=== PATIENT | male | born 1960 | race Two or more races ===

== ENCOUNTER 2023-05-30 05:23 | Inpatient (IN) | payer OTHER ==
[~2023-05-30] VITALS: Ht 172.7 cm; Wt 58.5 kg
[2023-05-30 08:27] LABS: HEMATOCRIT 44.2 % (39.0-48.0); HEMOGLOBIN 15.1 g/dL (13-16.00); MEAN CELL VOLUME 87.2 fL (80.0-100.00); MEAN CORPUSCULAR HEMOGLOBIN 29.8 pg (27.00-32.0); MEAN CORPUSCULAR HGB CONC 34.2 g/dl (32.0-36.0); PLATELET COUNT 258 K/uL (150-450); RED BLOOD COUNT 5.06 M/uL (4.00-6.00); RED CELL DISTRIBUTION WIDTH 14.2 % (11.5-14.5)
[2023-05-30 09:01] LABS: BILIRUBIN TOTAL 0.56 mg/dL (0.3-1.2); CALCIUM 9.4 mg/dL (8.5-10.1); CREATININE SERUM 0.9 mg/dL (0.70-1.30); GFR 86.07; POTASSIUM 3.71 mEq/L (3.5-5.1)
[2023-05-30 09:03] LABS: PH,URINE 5.5 (5.0-8.0); URINE APPEARANCE Clear; URINE BILIRRUBIN Negative (NEGATIVE); URINE BLOOD Negative; URINE COLOR Yellow; URINE GLUCOSE Negative (NEGATIVE); URINE LEUKOCYTE Negative; URINE NITRATE Negative; URINE PROTEIN Trace (NEGATIVE); URINE UROBILINOGEN 0.2 E.U./dl
[2023-05-30 09:04] LABS: URINE BACTERIA 6.2 uL (0.0-1933)
[2023-05-30 09:08] LABS: URINE EPITHELIAL CELLS 1.3 uL (0.0-38.8); URINE WBC 1.6 uL (0.0-23.2)
[2023-05-30 09:11] LABS: INR 1.04; PARTIAL THROMBOPLASTIN TIME 30.3 SECONDS (22.0-34.0); PROTHROMBIN TIME 10.9 SECONDS (9.0-11.5)
[2023-05-30 16:51] LABS: HEMATOCRIT 43.5 % (39.0-48.0); HEMOGLOBIN 14.8 g/dL (13-16.00); MEAN CELL VOLUME 87.2 fL (80.0-100.00); MEAN CORPUSCULAR HEMOGLOBIN 29.7 pg (27.00-32.0); MEAN CORPUSCULAR HGB CONC 34.1 g/dl (32.0-36.0); PLATELET COUNT 256 K/uL (150-450); RED BLOOD COUNT 4.99 M/uL (4.00-6.00); RED CELL DISTRIBUTION WIDTH 14.1 % (11.5-14.5)
[2023-05-30 17:10] LABS: CALCIUM 9.3 mg/dL (8.5-10.1); CREATININE SERUM 0.97 mg/dL (0.70-1.30); GFR 78.95; MAGNESIUM 1.8 mg/dL (1.8-2.4); PHOSPHOROUS 2.6 mg/dL (2.5-4.9); POTASSIUM 4.41 mEq/L (3.5-5.1)
[2023-05-31 06:17] LABS: HEMATOCRIT 41.2 % (39.0-48.0); HEMOGLOBIN 13.8 g/dL (13-16.00); MEAN CELL VOLUME 87.2 fL (80.0-100.00); MEAN CORPUSCULAR HEMOGLOBIN 29.2 pg (27.00-32.0); MEAN CORPUSCULAR HGB CONC 33.5 g/dl (32.0-36.0); PLATELET COUNT 238 K/uL (150-450); RED BLOOD COUNT 4.72 M/uL (4.00-6.00)
[2023-05-31 07:08] LABS: ALBUMIN 3.3 gm/dL (3.4-5.0); CALCIUM 8.6 mg/dL (8.5-10.1); CREATININE SERUM 1.01 mg/dL (0.70-1.30); GFR 75.35; MAGNESIUM 1.9 mg/dL (1.8-2.4); POTASSIUM 4.17 mEq/L (3.5-5.1)
[2023-06-01 06:35] LABS: HEMATOCRIT 43.4 % (39.0-48.0); HEMOGLOBIN 14.4 g/dL (13-16.00); MEAN CELL VOLUME 87.6 fL (80.0-100.00); MEAN CORPUSCULAR HGB CONC 33.2 g/dl (32.0-36.0); PLATELET COUNT 232 K/uL (150-450); RED BLOOD COUNT 4.96 M/uL (4.00-6.00); RED CELL DISTRIBUTION WIDTH 14.2 % (11.5-14.5)
[2023-06-01 07:06] LABS: CALCIUM 9.1 mg/dL (8.5-10.1); CREATININE SERUM 1.01 mg/dL (0.70-1.30); GFR 75.35; PHOSPHOROUS 2.1 mg/dL (2.5-4.9); POTASSIUM 4.86 mEq/L (3.5-5.1)
[2023-06-02] MEDS ORDERED: TRAM1TAB98 PO (12:20)
== END 2023-06-02 13:42 | disposition home or self-care (01) | DRG 330 ==
LOC: ER 05:24 → SURH 08:09
PROVIDERS: General Practice; Internal Medicine Geriatric Medicine; ADMIT Surgery; ATTEND Surgery
PROC: BB24ZZZ Computerized Tomography (CT Scan) of Bilateral Lungs (ICD-10-PCS; 2023-05-30)
PROC: 3E0F7SF Introduction of Other Gas into Respiratory Tract, Via Natural or Artificial Opening (ICD-10-PCS; 2023-05-30)
PROC: 0D1L4Z4 Bypass Transverse Colon to Cutaneous, Percutaneous Endoscopic Approach (ICD-10-PCS; principal; 2023-05-30 13:00)
DX: K56.699 Other intestinal obstruction unspecified as to partial versus complete obstruction (principal); C19 Malignant neoplasm of rectosigmoid junction; C78.7 Secondary malignant neoplasm of liver and intrahepatic bile duct; K62.5 Hemorrhage of anus and rectum; K59.00 Constipation, unspecified; G47.39 Other sleep apnea; Z87.891 Personal history of nicotine dependence

== ENCOUNTER 2023-06-05 00:36 | Emergency (ER) | payer OTHER ==
[~2023-06-05] VITALS: Ht 172.7 cm; Wt 58.5 kg
[~2023-06-05 00:36] MED LIST: TRAM1TAB98 PO
== END 2023-06-05 03:56 | disposition home or self-care (01) ==
LOC: ER 00:36
DX: Z43.3 Encounter for attention to colostomy (principal); Z85.038 Personal history of other malignant neoplasm of large intestine

== ENCOUNTER → 2023-06-27 11:51 | Outpatient (CLI) | payer OTHER ==
[2023-06-27 13:37] LABS: PH,URINE 5.5 (5.0-8.0); URINE APPEARANCE Clear; URINE BILIRRUBIN Negative (NEGATIVE); URINE BLOOD Negative; URINE COLOR Yellow; URINE GLUCOSE Negative (NEGATIVE); URINE LEUKOCYTE Negative; URINE NITRATE Negative; URINE PROTEIN Negative (NEGATIVE); URINE UROBILINOGEN 0.2 E.U./dl
[2023-06-27 13:46] LABS: HEMATOCRIT 41.3 % (39.0-48.0); HEMOGLOBIN 13.9 g/dL (13-16.00); MEAN CELL VOLUME 84.9 fL (80.0-100.00); MEAN CORPUSCULAR HEMOGLOBIN 28.6 pg (27.00-32.0); MEAN CORPUSCULAR HGB CONC 33.7 g/dl (32.0-36.0); PLATELET COUNT 337 K/uL (150-450); RED BLOOD COUNT 4.87 M/uL (4.00-6.00)
[2023-06-27 14:12] LABS: URINE BACTERIA 0 uL (0.0-1933); URINE RBC 1.7 uL (0.0-20.8)
[2023-06-27 14:22] LABS: BILIRUBIN TOTAL 0.46 mg/dL (0.3-1.2); CALCIUM 9.5 mg/dL (8.5-10.1); CREATININE SERUM 0.92 mg/dL (0.70-1.30); GFR 83.92; GLOBULINA 3.5 G/DL (2.4-3.5); POTASSIUM 4.27 mEq/L (3.5-5.1); TOTAL PROTEIN 7.5 gm/dL (6.4-8.2)
[2023-06-27 14:28] LABS: INR 1.02; PARTIAL THROMBOPLASTIN TIME 30.8 SECONDS (22.0-34.0); PROTHROMBIN TIME 10.7 SECONDS (9.0-11.5)
== END | disposition home or self-care (01) ==
LOC: LAB 11:51
PROVIDERS: ATTEND Surgery
DX: C20 Malignant neoplasm of rectum (principal); R59.0 Localized enlarged lymph nodes; C78.7 Secondary malignant neoplasm of liver and intrahepatic bile duct

== ENCOUNTER 2023-07-04 04:58 | Day surgery (SDC) | payer OTHER ==
[2023-07-04] MEDS ORDERED: TRAM1TAB98 PO (08:08)
== END 2023-07-04 10:50 | disposition home or self-care (01) ==
LOC: CIR.AMB 04:58
PROVIDERS: ATTEND Surgery
DX: C20 Malignant neoplasm of rectum (principal); Z20.822 Contact with and (suspected) exposure to COVID-19

== ENCOUNTER 2024-11-20 19:05 | Emergency (ER) | payer OTHER ==
[~2024-11-20] VITALS: Ht 172.7 cm; Wt 58.1 kg
[2024-11-20] MEDS ORDERED: DULCOLAX STOOL100 M1 PO (19:29)
[2024-11-20] MEDS ORDERED: GRALISE600 MG PO (19:29)
[2024-11-20] MEDS ORDERED: PANTOPRAZOLE SODIUM 40 MG/VIAL VIAL IV ONE (20:45)
[2024-11-20] MEDS ORDERED: 0.9 % SODIUM CHLORIDE 1,000 ML IV ONE (20:45)
[2024-11-20 21:35] LABS: EOS # 0.14 (0.04-0.54); EOS % 2.4 % (0.7-7.0); HEMATOCRIT 36.2 % (40.1-51.0); HEMOGLOBIN 12.2 g/dL (13.7-17.5); LYMPH % 39.9 % (19.3-53.1); MEAN CORPUSCULAR HEMOGLOBIN 31.2 pg (25.6-32.2); MONO # 0.16 (0.24-0.82); MONO % 2.8 % (4.7-12.5); NEUT # 3.09 (1.56-6.13); NEUT % 53.7 % (34.0-71.1); PLATELET COUNT 173 K/uL (163-369); RED BLOOD COUNT 3.91 M/uL (4.63-6.08); RED CELL DISTRIBUTION WIDTH 16.7 % (11.6-14.4)
[2024-11-20 21:37] LABS: INR 1.03; PARTIAL THROMBOPLASTIN TIME 22.7 SECONDS (22.0-34.0); PROTHROMBIN TIME 11.2 SECONDS (9.0-11.5)
[2024-11-20 21:41] LABS: ALBUMIN 3.4 gm/dL (3.4-5.0); BILIRUBIN TOTAL 1.07 mg/dL (0.3-1.2); CALCIUM 9.4 mg/dL (8.5-10.1); CREATININE SERUM 1.17 mg/dL (0.70-1.30); GFR 63.17; GLOBULINA 3.9 G/DL (2.4-3.5); POTASSIUM 3.55 mEq/L (3.5-5.1); TOTAL PROTEIN 7.3 gm/dL (6.4-8.2)
[2024-11-20 22:27] LABS: URINE APPEARANCE Clear; URINE BILIRRUBIN Negative (NEGATIVE); URINE BLOOD Negative; URINE COLOR Yellow; URINE GLUCOSE Negative (NEGATIVE); URINE KETONE Negative (NEGATIVE); URINE LEUKOCYTE Negative; URINE NITRATE Negative; URINE PROTEIN 30 (NEGATIVE); URINE UROBILINOGEN 0.2 E.U./dl
[2024-11-20 22:31] LABS: URINE EPITHELIAL CELLS 1.7 uL (0.0-38.8)
[2024-11-20 23:03] LABS: URINE BACTERIA 0 uL (0.0-1933); URINE RBC 0.1 uL (0.0-20.8); URINE WBC 1.5 uL (0.0-23.2)
== END 2024-11-21 03:02 | disposition home or self-care (01) ==
LOC: ER 19:05
PROVIDERS: General Practice
DX: K62.5 Hemorrhage of anus and rectum (principal); R42 Dizziness and giddiness; Z85.038 Personal history of other malignant neoplasm of large intestine; Z85.05 Personal history of malignant neoplasm of liver